=== PATIENT | male | born 1950 | race Caucasian/White ===

== ENCOUNTER → 2024-01-02 10:48 | Outpatient (BNVA) | payer MEDICARE, SELFPAY | PROVIDERS: Visit Provider Family Medicine | DX: Z13.6 Encounter for screening for cardiovascular disorders (principal); Z13.1 Encounter for screening for diabetes mellitus; Z12.2 Encounter for screening for malignant neoplasm of respiratory organs; E03.8 Other specified hypothyroidism; F17.211 Nicotine dependence, cigarettes, in remission | CPT/HCPCS: 80053; 80061; 84439; 84443 ==

== ENCOUNTER 2024-01-19 14:29 | Outpatient (CLI) | payer MEDICARE, SELFPAY ==
--- NOTE | 2024-01-19 14:45 | CT_ITS ---
WS: [id number] LDCT LUNG CANCER SCREENING TECHNIQUE: Noncontrast CT of the chest with coronal and sagittal reformatted images. CLINICAL INFORMATION: nicotine dep remission; quit 2020; 30pk yr; screening lung c COMPARISON: None. DLP: 75.77 mGy.cm DIvol: Mean CTDIvol: 1.20 (mGy) All CT scans at [facility] use at least one of these dose optimization techniques: automat ed exposure control; mA and/or kV adjustment per patient size (includes targeted exams where dose is matched to clinical indication); or iterative reconstruction. FINDINGS: A few tiny micronodules in the upper lobes. No suspicious pulmonary parenchymal normalities . Normal caliber thoracic aorta. Aortic calcification. Prominent ascending thoracic aorta measuring 3.9 cm. Aortic calcification. Coronary calcification. No mediastinal or hilar lymphadenopathy. No axilla ry lymphadenopathy. Suggestion of tiny bilateral adrenal nodules likely adenomas. Tiny esophageal hiatal hernia. LEFT kelvin al cyst. Mild thoracic curve. Hypertrophic changes thoracic spine. Small fat-containing RIGHT postero medial Bochdalek diaphragmatic hernia. CT/CT lung screening [id number] IMPRESSION: LUNG-RADS: 2-Benign Appearance or Behavior FOLLOW UP: 12 Month: Continue annual screening with LDCT
--- NOTE | 2024-01-19 15:15 | USCV_ITS ---
Gopi Hall Age: 73 Gender: M : 1950 Exam Date: 01/19/2024 15:09 Ordering Phys: Yvonne Nicole MD Technologist: TOM Exam Location: [facility] [place] Indication: Screening HISTORY: Diameter (cm) AP x Transverse x Length Velocity (cm/s) Waveform Prox Aorta: 2.10 x 2.70 x 79.40 Triphasic Mid Aorta: 1.90 x 1.90 x 62.50 Triphasic Distal Aorta: 1.90 x 1.90 x 69.70 Triphasic Right Iliac Prox: 1.24 x 1.10 x 111.90 Triphasic Left Iliac Prox: 1.31 x 1.07 x 99.00 Biphasic Stent Prox Landing x x Aneurysmal Sac Max x x Lt Lat Sac Dim Rt Lat Sac Dim Stent Dist Landing x x Right Iliac Stent x x Left Iliac Stent x x Right Renal Art Left Renal Art FINDINGS: CONCLUSIONS No evidence of abdominal aortic or bilateral iliac aneurysm. 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 Philip May MD (Electronically Signed) Final Date: 22 January 2024 11:01 S
== END 2024-01-19 14:30 | disposition home or self-care (01) ==
LOC: RAD 14:29
PROVIDERS: Visit Provider Family Medicine
DX: Z12.2 Encounter for screening for malignant neoplasm of respiratory organs (principal); Z13.6 Encounter for screening for cardiovascular disorders; F17.211 Nicotine dependence, cigarettes, in remission; R91.8 Other nonspecific abnormal finding of lung field; I70.0 Atherosclerosis of aorta; I25.84 Coronary atherosclerosis due to calcified coronary lesion; N28.1 Cyst of kidney, acquired; K42.9 Umbilical hernia without obstruction or gangrene
CPT/HCPCS: 71271; 76706

== ENCOUNTER → 2025-02-04 16:10 | Outpatient (BNVA) | payer MEDICARE, SELFPAY | PROVIDERS: PCP Family Medicine; Visit Provider Family Medicine | DX: Z11.59 Encounter for screening for other viral diseases (principal); Z13.6 Encounter for screening for cardiovascular disorders; Z12.5 Encounter for screening for malignant neoplasm of prostate; E78.00 Pure hypercholesterolemia, unspecified; E03.8 Other specified hypothyroidism | CPT/HCPCS: 80053; 80061; 84439; 84443; 85025; 86803; G0103 ==

== ENCOUNTER → 2025-02-10 09:36 | Outpatient (BNVA) | payer MEDICARE, SELFPAY | PROVIDERS: PCP Family Medicine; Visit Provider Family Medicine | DX: R97.20 Elevated prostate specific antigen [PSA] (principal) | CPT/HCPCS: 84154 ==